=== PATIENT | male | born 1960 | race Caucasian/White ===

== ENCOUNTER 2016-12-13 16:11 | Emergency (ER) | payer MEDICAID ==
[2016-12-13 17:21] VITALS: BP 149/91
[2016-12-13] MEDS ORDERED: Cyclobenzaprine 10 MG Tab PO ONE (17:52)
[2016-12-13] MEDS ORDERED: Ketorolac 60 MG/2 ML SDV IM ONE (17:52)
--- NOTE | 2016-12-13 17:59 | EDM.PDOC ---
ED HPI GENERAL MEDICAL PROBLEM - General Chief Complaint: Back Pain or Injury Stated Complaint: NECK PAIN, DOWN BACK INTO LEFT ARM Time Seen by Provider: 12/13/16 17:28 Source of Information: Reports: Patient History Limitations: Reports: No Limitations - History of Present Illness INITIAL COMMENTS - FREE TEXT/NARRATIVE: 56 yo male presents to ER with upper left back pain. 4 days ago he used a back pack sprayer and when he put it on the straps were to short and he strained back but was fine throughout the day. Woke the next morning with Upper left back pain radiating into left shoulder. yesterday mild tingling in left arm. Ibuprofen 400 mg 6 hours ago. Denies fever, chills or neck pain. Left Shoulder Pain Score (Numeric/FACES): 10 - Related Data Allergies Allergy/AdvReac Type Severity Reaction Status Date / Time No Known Allergies Allergy Verified 12/13/16 17:34 Home Meds: Home Meds glipiZIDE [Glipizide] 10 mg PO DAILY 12/13/16 [History] metFORMIN HCl [Metformin HCl ER] 1 tab PO BID 12/13/16 [History] Past Medical History Endocrine/Metabolic History: Reports: Diabetes, Type II - Infectious Disease History Infectious Disease History: Reports: Chicken Pox - Past Surgical History Neurological Surgical History: Reports: Other (See Below) Other Neurological Surgeries/Procedures: some kind of back surgery Social & Family History - Tobacco Use Smoking Status *Q: Never Smoker - Caffeine Use Caffeine Use: Reports: None - Alcohol Use Days Per Week of Alcohol Use: 7 Number of Drinks Per Day: 1 Total Drinks Per Week: 7 - Recreational Drug Use Recreational Drug Use: No ED ROS GENERAL - Review of Systems Review Of Systems: See Below Constitutional: Denies: Fever, Chills Respiratory: Denies: Shortness of Breath, Wheezing Cardiovascular: Denies: Chest Pain Musculoskeletal: Reports: Back Pain ED EXAM, UPPER BACK/NECK PAIN - Physical Exam Exam: See Below Exam Limited By: No Limitations General Appearance: Alert, WD/WN, No Apparent Distress Head Exam: Atraumatic, Normocephalic Neck Exam: Non-Tender, Full Range of Motion, Normal Alignment, Normal Inspection Cardiovascular/Respiratory: Regular Rate, Rhythm GI/Abdominal: Soft, Non-Tender Back Exam: Full Range of Motion, Muscle Spasm, Paraspinal Tenderness (left thoratic region at T3-T5, muscle spasm noted radiating pain into shoulder) Extremities: Normal Inspection, Normal Range of Motion, Non-Tender Psychiatric: Normal Affect, Normal Mood Skin Exam: Normal Color, Warm/Dry Course - Vital Signs Last Recorded V/S: Last Vital Signs Temp 36.7 C 12/13/16 17:42 Pulse 98 12/13/16 17:42 Resp 16 12/13/16 17:42 BP 149/91 H 12/13/16 17:42 Pulse Ox 95 12/13/16 17:42 - Orders/Labs/Meds Meds: Medications Discontinued Medications Generic Name Dose Route Start Last Admin Trade Name Melissa PRN Reason Stop Dose Admin Cyclobenzaprine HCl 10 mg 12/13/16 17:52 12/13/16 18:06 Flexeril PO 12/13/16 17:53 10 mg ONETIME ONE Administration Ketorolac Tromethamine 60 mg 12/13/16 17:52 12/13/16 18:06 Toradol IM 12/13/16 17:53 60 mg ONETIME ONE Administration - Re-Assessments/Exams Free Text/Narrative Re-Assessment/Exam: 12/13/16 18:43 pain relieved to 5/10, moving well in room Departure - Departure Time of Disposition: 18:34 Disposition: Home, Self-Care 01 Condition: Good Clinical Impression: Thoracic back pain Qualifiers: Chronicity: acute Back pain laterality: left Qualified Code(s): M54.6 - Pain in thoracic spine - Discharge Information Referrals: Maria Isabel Thornton PA [Primary Care Provider] - Forms: ED Department Discharge Additional Instructions: ibuprofen 400-600 mg every 8 hours for 5 days cyclobenzipine for muscle spasms alternate ice and heat massage if you are not better by mid next week follow-up with your primary care provider for physical therapy
== END 2016-12-13 18:59 | disposition home or self-care (01) ==
LOC: JP.ED 16:11
DX: M54.6 Pain in thoracic spine (principal); E11.9 Type 2 diabetes mellitus without complications; Z79.899 Other long term (current) drug therapy
CPT/HCPCS: 96372; 99283; A9270; J1885

== ENCOUNTER 2019-11-05 16:03 | Emergency (ER) | payer OTHER, BC | END 2019-11-05 18:30 | disposition home or self-care (01) | LOC: JP.ED 16:03 | CPT/HCPCS: 99283 ==

== ENCOUNTER 2020-01-05 22:48 | Emergency (ER) | payer BC, OTHER ==
[2020-01-05 23:12] VITALS: BP 164/83; PULSE 58
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
== END 2020-01-05 23:46 | disposition home or self-care (01) ==
LOC: JP.ED 22:48
DX: T24.131A Burn of first degree of right lower leg, initial encounter (principal); L03.115 Cellulitis of right lower limb; E11.9 Type 2 diabetes mellitus without complications; Z79.84 Long term (current) use of oral hypoglycemic drugs
CPT/HCPCS: 99283

== ENCOUNTER 2024-03-15 22:42 | Emergency (ER) | payer BC, MEDICAID ==
[2024-03-15 22:55] VITALS: BP 138/85; PULSE 52
[2024-03-15] MEDS: Lidocaine 1% with EPINEPHrine 1:100,000 20 ML MDV INJECT ONE (23:18)
[2024-03-15] MEDS: Bacitracin Oint 1 GM U/D Packet TOP ONE (23:29)
== END 2024-03-15 23:40 | disposition home or self-care (01) ==
LOC: JP.ED 22:42
DX: S91.111A Laceration without foreign body of right great toe without damage to nail, initial encounter (principal); I10 Essential (primary) hypertension; E11.9 Type 2 diabetes mellitus without complications; F17.210 Nicotine dependence, cigarettes, uncomplicated; Z86.16 Personal history of COVID-19; Z79.899 Other long term (current) drug therapy; W25.XXXA Contact with sharp glass, initial encounter
CPT/HCPCS: 12001; 12002; 99282; 99283